=== PATIENT | female | born 1975 | race Two or more races ===

== ENCOUNTER 2024-01-15 10:05 | Emergency (ER) | payer SELFPAY ==
[~2024-01-15] VITALS: Ht 165.1 cm; Wt 46.0 kg
[2024-01-15 10:49] VITALS: BP 183/99; PULSE 94; RESP 18; TEMP 98.4; O2SAT 100
[2024-01-15] MEDS ORDERED: IBUP1TAB5 PO (11:44)
[2024-01-15] MEDS ORDERED: CEPH500C PO (11:44)
[2024-01-15] MEDS: cefTRIAXone SOD 500 MG VL IM ONE (11:52)
[2024-01-15] MEDS: TETANUS-DIPTH-ACEL PERTUSSIS 0.5ML SYR Tdap IM ONE (11:52)
[2024-01-15] MEDS: NEOMYCIN-BACITRACIN-POLYM UNITDOSE PKG TOP OINT TOP ONE (11:52)
== END 2024-01-15 12:12 | disposition home or self-care (01) ==
LOC: ER 10:05
DX: S01.81XA Laceration without foreign body of other part of head, initial encounter (principal); Z79.1 Long term (current) use of non-steroidal anti-inflammatories (NSAID); Z79.899 Other long term (current) drug therapy; W26.8XXA Contact with other sharp object(s), not elsewhere classified, initial encounter; Y93.89 Activity, other specified; Y92.89 Other specified places as the place of occurrence of the external cause; Y99.8 Other external cause status
CPT/HCPCS: 12013; 99283; J2001; 90715; J0696